=== PATIENT | female | born 1995 | race Caucasian/White ===

== ENCOUNTER → 2019-09-02 | Outpatient (CLI) | payer OTHER ==
--- NOTE | 2019-09-03 04:06 | REP ---
Clinical: Pelvic pain. Ovarian cyst. Technique: Transabdominal pelvic ultrasound followed by transvaginal examination for better evaluation of the endometrium and adnexa with color Doppler evaluation of the ovaries. Findings: Bladder is under distended. Normal anteverted retroflexed uterus measures 8.2 x 3.4 x 5.0 cm. Endometrial complex measures 14 mm thickness. No discrete uterine or endometrial abnormality appreciated. Bilateral ovaries are normal in appearance and vascularity without torsion. Right ovary measures 4.5 x 2.7 x 3.9 cm (RI 0.61) and includes 1.8 cm, 1.6 cm, and 1.8 cm simple appearing physiologic cysts. Left ovary measures 2.5 x 2.1 x 1.4 cm (RI 0.76). No pelvic fluid or adnexal mass lesion. Impression: 1. Normal uterus and left ovary. 2. Right ovarian cysts/dominant follicle likely physiologic. If necessary consider reevaluation in 4-6 weeks to evaluate for resolution.
== END ==
LOC: M WHC 08:32
PROVIDERS: ATTEND Advanced Practice Midwife
DX: N83.201 Unspecified ovarian cyst, right side (principal)

== ENCOUNTER → 2020-03-15 | Outpatient (REF) | payer OTHER | LOC: M SFHCWAGY 10:02 | PROVIDERS: ATTEND Advanced Practice Midwife | DX: R30.0 Dysuria (principal) ==

== ENCOUNTER → 2020-07-29 | Outpatient (REF) | LOC: M LABSMTC 10:04 | PROVIDERS: ATTEND Pediatrics | DX: Z11.52 Encounter for screening for COVID-19 (principal) ==